=== PATIENT | female | born 1935 | race Caucasian/White ===

== ENCOUNTER 2023-07-24 15:10 | Emergency (ER) | payer MEDICARE, SELFPAY ==
[2023-07-24 15:12] VITALS: BP 217/97; PULSE 95; RESP 16; TEMP 36.6; O2SAT 100; BMI 42.8
--- NOTE | 2023-07-24 15:39 | EDS_ITS ---
HPI History of Present Illness Chief Complaint: Chest Other Informant: patient and friend Onset/Context/Timing Onset: Today (JPTA) Context: Sudden Onset Quality: discomfort Location: mid-chest Current Severity: Moderate Maximum Severity: Moderate Worsened by: swallowing Relieved by: nothing Narrative Narrative: Patient is having chest discomfort, she is spitting up secretions, occasionally vomiting, she and family in the room started out by saying maybe this is reflux, she at one point said that it felt like her breath was being taken away but she does not feel dyspneic, and history was initially fairly limited because there were multiple historians talking over each other. From what it sounds to me, the patient started having symptoms abruptly upon swallowing while she was out to eat. She ate a bite of salmon, a bite of steak, and something else and after one of the bites abruptly felt discomfort in her chest and has been spitting up secretions, she tried taking a sip of fluids and promptly vomited that up, and she has discomfort mid chest that is worse whenever she swallows, not when she breathes. She and family/friends states she has had this 3 or 4 episodes before. Patient states this is probably been over the past 2 years plus or minus, the last one was not recently, she states all of them were at home and after vomiting the symptoms cleared and then things went back to normal and she has never been seen at a hospital or by a doctor for this problem before. She does not take medication for reflux. She does not take any antiplatelet or anticoagulant medications. She states with 2 other meals/snacks earlier today, she had none of these issues or symptoms. [facility] Medical History (Updated 07/24/23 @ 17:[address] Alejandro Jones MD) Arthritis Gout HTN (hypertension) Kidney disease Home Medications pantoprazole 40 mg tablet,delayed release 40 mg PO DAILY #30 tabs 07/24/23 [Rx Last Taken Unknown] Allergy/AdvReac Type Severity Reaction Status Date / Time tramadol Allergy Intermediate SEIZURE Verified 07/24/23 15:12 Social History Smoking Status: Never smoker ROS ROS ED Constitutional Constitutional ED: Denies chills, fever(s) or sweats Eyes Eyes: Denies change in vision or diplopia ENT ENT ED: Denies rhinorrhea or sore throat Cardiovascular Cardiovascular: Reports as per HPI and chest pain; Denies lightheadedness, palpitations or radiating jaw, neck or arm pain Respiratory/Chest Respiratory/Chest: Denies cough or dyspnea Gastrointestinal Gastrointestinal: Reports vomiting; Denies abdominal pain, diarrhea or nausea Genitourinary Genitourinary ED: Denies dysuria or hematuria Musculoskeletal Musculoskeletal: Denies back pain or neck pain Integumentary Denies abscess or rash Neurologic Neurologic: Denies headache(s), paresthesias or weakness Psychiatric Psychiatric: Denies anxiety or suicidal thoughts EXAM Physical Exam Const Vital Signs: 07/24/23 15:12 Temperature 97.8 F Temperature Source Temporal Pulse Rate 95 Respiratory Rate 16 Blood Pressure 217/97 H Blood Pressure Mean 137 Pulse Ox 100 Oxygen Delivery Method Room Air Positive well nourished, well developed and obese Constitutional Narrative: Tolerating secretions which are minimal. Has an emesis bag that she occasionally spits clear secretions into. General Appearance ED: well developed and NAD Nutritional Appearance: obese HEENT Reports moist mucous membranes normocephalic and atraumatic Eyes PERRL and EOMs intact bilaterally Neck full ROM and supple Chest Wall inspection of chest normal and palpation of chest normal Resp normal respiratory effort and clear to auscultation bilaterally Cardio regular rate, regular rhythm and no murmurs Rate: Negative for tachycardic GI non-tender and non-distended Auscultation: normoactive bowel sounds Palpation: soft Back/Spine no CVA tenderness General Back: other FROM Extremity normal to inspection General Extremety ED: Negative for edema, pulses abnormal or tenderness General Extremity: Negative for edema or pulses abnormal Neuro oriented x3, CN's II-XII intact bilaterally and no sensory deficits noted Sensorium / Orientation: awake and alert Motor Exam: strength 5/5 throughout Skin no rashes or lesions noted and no wounds MDM MDM MDM Narrative Medical decision making narrative: By the patient's history and exam she is likely to have an esophageal food impaction. She has never had an EGD and never been diagnosed with reflux. To isiah, she has symptoms for about 3 hours, will give her glucagon 1 mg IV, since nursing inadvertently put an IV in the patient, we used it. After about 15 or 30 minutes, she started feeling better and she was able to drink fluids without difficulty, she has pain with swallowing, and no symptoms. I gave her some Sprite she is able to drink it without any symptoms or difficulty. She is from out of [facility]. Therefore did not discuss with GI follow-up, I discussed with her and family/friends follow-up instructions to call for an appointment with GI soon as possible. Differential here includes stricture, esophageal web, less likely mass since she is not a tobacco product user, but these are on the differential and she should call for an appointment soon as possible. In the meantime we will also put her on Protonix for the next month, she was given an initial pill here, and advised to chew her food carefully. She is comfortable with that plan. I did do a 1 view chest x-ray to look for any lateralization and possible airway involvement, on my interpretation it is normal, radiology in agreement. Interestingly I do see that her trachea seems to curve I do not know if or how this could be related. Radiography Diagnostic Testing: Clinical Impression(s) from Imaging Studies Chest X-Ray 07/24/23 15:45 IMPRESSION: There are no acute findings. Electronically Signed: Lev Robison MD at 16:08 EST Reading Location ID and State: [facility] / [place] , Service support , Discharge Plan Triage Chief Complaint: Chest Other ED Provider: Alejandro Jones Dx/Rx/DC Orders Clinical Impression: Esophageal obstruction due to food impaction Instructions: ED Esophageal Foreign Body, Resolved Prescriptions: New pantoprazole 40 mg tablet,delayed release (DR/EC) 40 mg PO DAILY Qty: 30 0RF Primary Care Provider: Care Physician,No Primary Referrals: [facility] Doctor,Out of [Non-Staff] - As soon as possible (GI (gastroenterology) -- call for appt to be evaluated for EGD due to transient esophageal food impaction) Disposition Disposition: Home, Self Care
--- NOTE | 2023-07-24 15:45 | RAD_ITS ---
STUDY: XR Chest 1 View 07/24/2023 3:42 PM REASON FOR EXAM: Female, 87 years old. chest discomfort (suspect esophageal obstruction) COMPARISON: None TECHNIQUE: XR Chest 1 View FINDINGS: There is no demonstrated pleural abnormality. There is an elevated right hemidiaphragm. Normal heart size. Normal mediastinum. Normal christina. Prominent appearing increased interstitial lung markings. Normal visualized pulmonary arteries. There is atherosclerotic calcification of the aortic arch with tortuosity. There are diffuse degenerative changes of the visualized thoracic spine. There is degenerative osteoarthritis of the bilateral shoulders. There is a small hiatal hernia. RAD/Chest 1 View (Portable) IMPRESSION: There are no acute findings. Electronically Signed: Lev Robison MD at 16:08 EST ,
--- NOTE | 2023-07-24 16:18 | ED.RN ---
WAITING FOR GLUCAGON, NOT PRESENT IN ER OR STOCKED IN ACCUDOSE. CALLED PHARMACY AT [phone]
[2023-07-24] MEDS: Glucagon 1 MG/ML Syringe IV (16:23)
[2023-07-24] MEDS: Pantoprazole Sodium 40 MG Tablet PO (17:52)
[2023-07-24 17:59] VITALS: PULSE 85; RESP 18; O2SAT 95
== END 2023-07-24 18:00 | disposition home or self-care (01) ==
PROVIDERS: Emergency Provider Emergency Medicine; Visit Provider Emergency Medicine
DX: K22.2 Esophageal obstruction (principal); T18.108A Unspecified foreign body in esophagus causing other injury, initial encounter; X58.XXXA Exposure to other specified factors, initial encounter
CPT/HCPCS: 71045; 96374; 99282; A4216; J1610